=== PATIENT | male | born 1935 | race Caucasian/White ===

== ENCOUNTER 2017-05-09 08:10 | Inpatient (IN) ==
[2017-05-09] MEDS ORDERED: IOPAMIDOL 100 ML BOTTLE IJ ONE (08:11)
--- NOTE | 2017-05-09 08:34 | Cat Scan Report ---
CLINICAL INFORMATION: Code stroke COMPARISON: None. TECHNIQUE: Axial noncontrast-enhanced images through the brain. FINDINGS: No acute intracranial hemorrhage. No intra-axial hematoma. There is a nonacute lacunar infarction in the right caudate nucleus. No other focal intra-axial attenuation abnormalities. No localized mass effect. There is mild cerebral atrophy, age-appropriate. There is mild periventricular white matter abnormality. Brainstem and cerebellum are negative. No extra-axial, intracranial abnormality. No subdural hematoma. No subarachnoid hemorrhage. Basilar cisterns are normal. No hyperdense middle cerebral artery sign. No calvarial fracture. No lytic lesion. Temporal bones are negative. There is inflammatory disease within the paranasal sinuses. There is mucosal thickening within ethmoid sinuses bilaterally, frontal sinuses bilaterally, and sphenoid air cells. IMPRESSION: 1. No acute intracranial abnormality. 2. Sinusitis. The exam was performed using radiation dose optimization techniques including, but not limited to, automated exposure control, adjustment of the mA and/or kV according to patient size and use of iterative reconstruction technique. Interpreted and Authenticated by: Karri Thompson 05/09/17
[2017-05-09 08:55] LABS: Basophils # (Auto) 0.1 K/mcL (0.0-0.3); Basophils % (Auto) 1.3 % (0.0-2.0); Eosinophils # (Auto) 0.4 K/mcL (0.0-0.7); Eosinophils % (Auto) 6.2 % (0.0-7.0); Granulocytes % (Auto) 63.9 % (38.0-78.0); Lymphocytes # (Auto) 1.1 K/mcL (1.5-4.8); Mean Cell Volume 102.2 fL (80.0-100.0); Mean Corpuscular HGB Conc 34.4 g/dL (31.0-36.0); Mean Corpuscular Hemoglobin 35.1 pg (26.0-34.0); Monocytes # (Auto) 0.9 K/mcL (0.1-0.9); Monocytes % (Auto) 12.6 % (1.0-12.0); Platelet Count 171 K/mcL (140-440); RBC 4.06 M/mcL (4.50-5.90); Red Cell Distribution Width 13.1 % (11.5-14.5)
[2017-05-09 09:21] LABS: ALT/SGPT 14 U/l (0-40); Albumin 4.3 gm/dL (3.2-5.2); Albumin/Globulin Ratio 1.1 (1.0-2.3); Alkaline Phosphatase 77 U/L (39-117); Blood Urea Nitrogen 16 mg/dl (8-23)
--- NOTE | 2017-05-09 09:25 | Emergency Department Note ---
Neuro HPI - General Chief Complaint: Neuro Symptoms/Deficit Stated Complaint: Neuro Time Seen by Provider: 05/09/17 09:23 Source: patient, family Mode of arrival: ambulatory Limitations: no limitations - History of Present Illness HPI Narrative: This 81-year-old gentleman comes to the emergency room by private car after he was noted this morning to have some slurred speech, facial droop and weakness of his left upper extremity and left lower extremity. His remembers him going to bed around 10 PM last evening and he was normal at that time. This morning he apparently got up and went to the bathroom by himself but slumped into a chair that thumped against the wall and woke her up and this was around 5 AM. She helped him get to bed and bathroom again and back to bed. At breakfast around 7 or 730 he was choking significantly and could not seem to eat. He says he was having trouble swallowing. Because of these signs and symptoms was brought to the emergency room. He reports last evening that he felt like he swallowed something wrong but it was not food or saliva. On Anticoagulants: Yes - Related Data Home Medications: Home Medications Medication Instructions Recorded Confirmed Aspirin [[place] Aspirin] 81 mg PO DAILY 01/31/17 01/31/17 Cholecalciferol (Vitamin D3) 2,000 unit PO DAILY 01/31/17 01/31/17 [Vitamin D] Cyanocobalamin/Folic Acid [Vitamin 1 each PO DAILY 01/31/17 01/31/17 O66-Lwrfy Acid Tablet] Ferrous Sulfate 65 mg PO DAILY 01/31/17 01/31/17 Hydrochlorothiazide [Oretic] 25 mg PO DAILY 01/31/17 01/31/17 Lisinopril [Zestril] 40 mg PO DAILY 01/31/17 01/31/17 Metoprolol Tartrate [Lopressor] 150 mg PO DAILY 01/31/17 01/31/17 Multivitamin [Men's Multi-Vitamin] 1 each PO DAILY 01/31/17 01/31/17 Omeprazole [PriLOSEC] 20 mg PO DAILY 01/31/17 01/31/17 Pravastatin [Pravachol] 20 mg PO HS 01/31/17 01/31/17 amLODIPine BESYLATE [Amlodipine 10 mg PO DAILY 01/31/17 01/31/17 Besylate] glipiZIDE [Glucotrol] 5 mg PO DAILY 01/31/17 01/31/17 Previous Rx's Medication Instructions Recorded Methocarbamol [Robaxin-750] 750 mg PO QIDP PRN #60 tab 01/31/17 Allergies/Adverse Reactions: Allergies Allergy/AdvReac Type Severity Reaction Status Date / Time No Known Drug Allergies Allergy Verified 05/09/17 08:11 Review of Systems Review of Systems: Constitutional: Denies: fever, chills, sweats ENT ED: Reports: throat pain (Mild recently with upper respiratory infection.), other (Has recently been sneezing quite a bit.). Denies: congestion Cardiovascular: Denies: chest pain, palpitations Respiratory: Reports: shortness of breath (With just these last few days; an antihistamine did seem to help which he took yesterday or the day before.). Denies: cough, wheezes Gastrointestinal: Reports: vomiting (Dry heaves today.), diarrhea. Denies: abdominal pain Genitourinary: Reports: incontinence. 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 Denies: atrial fibrillation, CVA, myocardial infarction, thyroid disease Surgical history ED: Reports: other (Right orchiectomy) Medical history: Reports: DM, hyperlipidemia, hypertension Surgical history ED: Reports: other (left kidney surgery, had renal ca) - Social History smoking status: Former smoker Physical Exam Limitations: no limitations General appearance: alert, in distress Head: atraumatic, normocephalic, other (Exception is lack of complete movement on the left corner of his mouth.) Eye: Present: EOMI, other (He is able to close his eyes tightly against resistance equally.) ENT: normal oropharynx, other (Tongue is midline. Left corner of the mouth does not drop equally compared to the right when he tries to smile.) Neck: Present: trachea midline. Absent: lymphadenopathy, thyromegaly Respiratory: Present: normal lung sounds bilaterally. Absent: respiratory distress, wheezes, stridor, accessory muscle use, prolonged expiratory phase Cardiovascular: Present: irregular rhythm. Absent: systolic murmur, diastolic murmur Abdominal: Present: soft. Absent: distention, tenderness, guarding, rebound, rigidity, organomegaly, mass Extremities: Absent: pedal edema, pretibial edema, calf tenderness Back: Present: spinous process tenderness. Absent: CVA tenderness (R), CVA tenderness (L) Neurological: Present: alert, oriented X3 Cranial nerves: EOM function (II, III, IV, ): Normal, facial sensation (V): Normal, facial palsy (VII): Abnormal Left, tongue deviation (XII): Normal Cerebellar function: finger to nose: Normal, heel to alonso: Normal Motor strength - LUE: 4/5 Motor strength - RUE: 4/5 Motor strength - LLE: 4/5 Motor strength - RLE: 4/5 Upper motor neuron exam: stephan neglect: Absent bilaterally, pronator drift: Absent bilaterally Sensory exam upper extremity: Normal: light touch Sensory exam lower extremity: Normal: light touch Psychiatric: Present: normal affect, normal mood, other (Mildly flat face ease) Limitations: no limitations Course Vital Signs Pulse Rate 99 H 05/09/17 08:11 Respiratory Rate 18 05/09/17 08:11 Blood Pressure 144/94 05/09/17 08:11 Pulse Oximetry (%) 97 05/09/17 08:11 Pulse Rate 98 H 05/09/17 09:16 Respiratory Rate 18 05/09/17 09:16 Blood Pressure 122/90 05/09/17 09:16 Pulse Oximetry (%) 96 05/09/17 09:16 Neuro Symptoms/Deficit - MDM Narrative Medical decision making narrative: Medical decision making narrative: Probable CVA but CT scan was negative. Some of his symptoms were reversing when he came back from CT scan. With his history of diabetes and the severity of his symptoms, he is a candidate for inpatient observation which I will discuss with Dr. Guido who will be coming on. ECG demonstrates atrial fibrillation which is likely to be new. He reports being on a blood thinner but it is not in his list. It is doubtful that he actually is on a specific blood thinner. - Lab Data Result diagrams: 05/09/17 08:14 05/09/17 08:14 Lab Results 05/09/17 05/09/17 05/09/17 Range/Units 08:14 08:14 08:14 WBC 7.1 (4.5-11.0) K/mcL RBC 4.06 L (4.50-5.90) M/mcL Hgb 14.3 (13.5-16.5) g/dL Hct 41.5 (41.0-55.0) % POC Hct 44.0 (41.0-55.0) % MCV 102.2 H (80.0-100.0) fL MCH 35.1 H (26.0-34.0) pg MCHC 34.4 (31.0-36.0) g/dL RDW 13.1 (11.5-14.5) % Plt Count 171 (140-440) K/mcL MPV 9.0 (7.4-10.4) fL Gran % 63.9 (38.0-78.0) % Lymph % (Auto) 16.0 (15.5-49.0) % [place] % (Auto) 12.6 H (1.0-12.0) % Eos % (Auto) 6.2 (0.0-7.0) % Baso % (Auto) 1.3 (0.0-2.0) % Gran # 4.6 (1.8-8.0) K/mcL Lymph # (Auto) 1.1 L (1.5-4.8) K/mcL [place] # (Auto) 0.9 (0.1-0.9) K/mcL Eos # (Auto) 0.4 (0.0-0.7) K/mcL Baso # (Auto) 0.1 (0.0-0.3) K/mcL POC PT 14.1 (11.9-14.5) sec POC INR 1.2 (0.9-1.2) POC Sodium 139 (133-145) mmol/L Sodium 135 (133-145) mmol/L POC Potassium 3.5 (3.3-5.1) mmol/L Potassium 3.5 (3.3-5.1) mmol/L POC Chloride 98 (96-108) mmol/L Chloride 94 L (96-108) mmol/L Carbon Dioxide 23 (22-30) mmol/L POC Total CO2 28 (22-30) mmol/L Anion Gap 18.0 H (8-16) POC BUN 18 (8-23) mg/dl BUN 16 (8-23) mg/dl Creatinine 1.1 (0.7-1.2) mg/dl POC Creatinine 1.1 (0.7-1.2) mg/dl GFR Calculation 63 Glucose 245 H (70-105) mg/dL POC Glucose 247 H (70-105) mg/dL Calcium 10.2 (8.6-10.4) mg/dl POC WB Ioniz Calcium 1.24 (1.16-1.32) mmol/L Total Bilirubin 0.4 (0.0-1.0) mg/dL AST 20 (0-37) U/l ALT 14 (0-40) U/l Alkaline Phosphatase 77 (39-117) U/L Troponin T (0-0.03) ng/ml Total Protein 8.3 (5.9-8.4) gm/dL Albumin 4.3 (3.2-5.2) gm/dL Globulin 4.0 H (2.2-3.7) gm/dL Albumin/Globulin Ratio 1.1 (1.0-2.3) 05/09/17 Range/Units 08:14 WBC (4.5-11.0) K/mcL RBC (4.50-5.90) M/mcL Hgb (13.5-16.5) g/dL Hct (41.0-55.0) % POC Hct (41.0-55.0) % MCV (80.0-100.0) fL MCH (26.0-34.0) pg MCHC (31.0-36.0) g/dL RDW (11.5-14.5) % Plt Count (140-440) K/mcL MPV (7.4-10.4) fL Gran % (38.0-78.0) % Lymph % (Auto) (15.5-49.0) % [place] % (Auto) (1.0-12.0) % Eos % (Auto) (0.0-7.0) % Baso % (Auto) (0.0-2.0) % Gran # (1.8-8.0) K/mcL Lymph # (Auto) (1.5-4.8) K/mcL [place] # (Auto) (0.1-0.9) K/mcL Eos # (Auto) (0.0-0.7) K/mcL Baso # (Auto) (0.0-0.3) K/mcL POC PT (11.9-14.5) sec POC INR (0.9-1.2) POC Sodium (133-145) mmol/L Sodium (133-145) mmol/L POC Potassium (3.3-5.1) mmol/L Potassium (3.3-5.1) mmol/L POC Chloride (96-108) mmol/L Chloride (96-108) mmol/L Carbon Dioxide (22-30) mmol/L POC Total CO2 (22-30) mmol/L Anion Gap (8-16) POC BUN (8-23) mg/dl BUN (8-23) mg/dl Creatinine (0.7-1.2) mg/dl POC Creatinine (0.7-1.2) mg/dl GFR Calculation Glucose (70-105) mg/dL POC Glucose (70-105) mg/dL Calcium (8.6-10.4) mg/dl POC WB Ioniz Calcium (1.16-1.32) mmol/L Total Bilirubin (0.0-1.0) mg/dL AST (0-37) U/l ALT (0-40) U/l Alkaline Phosphatase (39-117) U/L Troponin T < 0.01 (0-0.03) ng/ml Total Protein (5.9-8.4) gm/dL Albumin (3.2-5.2) gm/dL Globulin (2.2-3.7) gm/dL Albumin/Globulin Ratio (1.0-2.3) Disposition Pt seen by BLOW DOWN HELPER/PA only: No Clinical Impression: Left hemiparesis, Facial droop due to acute stroke CVA (cerebral vascular accident) Qualifiers: CVA mechanism: unspecified Qualified Code(s): I63.9 - Cerebral infarction, unspecified A-fib Qualifiers: Atrial fibrillation type: unspecified Qualified Code(s): I48.91 - Unspecified atrial fibrillation Disposition: Still a Patient Referrals: Doug Lund MD [Primary Care Provider] -
--- NOTE | 2017-05-09 10:04 | Cat Scan Report ---
CLINICAL INFORMATION: Stroke symptoms TECHNIQUE: Routine CTA of the neck. 80 mL contrast material injected. Scanning was performed during arterial phase. Sagittally and coronally reformatted images. COMPARISON: None. FINDINGS: There is calcification of the aortic arch. No dissection. No aneurysmal enlargement. Origin of the left subclavian artery, left vertebral artery, left common carotid artery, innominate artery, right common carotid artery, right subclavian artery, right vertebral artery are normal. No stenosis. Common carotid arteries are negative bilaterally. No focal stenosis. Internal carotid arteries are negative. No stenosis. No ulceration. No significant plaque. The right internal carotid artery is larger than the left. There is a hypoplastic A1 segment of the left anterior cerebral artery. This is a normal variant. Vertebral arteries are negative. No occlusion. No stenosis. Left vertebral artery is larger than the right. Vertebral basilar junction is normal. No negative. No solid or cystic mass. No pathologic adenopathy. Airway is negative. No prevertebral soft tissue swelling. Multilevel degenerative disc disease in the cervical spine. No fracture. Lung apices are negative. IMPRESSION: 1. Mild atherosclerotic calcification of the thoracic aorta. 2. Common carotid arteries and internal carotid arteries are negative. No significant plaque. No stenosis. No focal ulcerations or acute abnormality. Interpreted and Authenticated by: Karri Thompson 05/09/17
--- NOTE | 2017-05-09 10:07 | Cat Scan Report ---
CLINICAL INFORMATION: Code stroke TECHNIQUE: 80 mL intravenous contrast material injected. Axial images through the brain. Scanning performed during arterial phase. Sagittally and coronally reformatted images. COMPARISON: Brain CT scan dated 05/09/2017 FINDINGS: Petrous, cavernous, supraclinoid segments of the internal carotid arteries are negative bilaterally. No focal stenosis. No cavernous carotid aneurysm. The right internal carotid artery is larger than the left. This is secondary to a hypoplastic or aplastic A1 segment of the left anterior cerebral artery. This is a normal variant. There is a prominent right posterior communicating artery. No intracranial stenoses. No detectable branch occlusion. Intracranial vertebral arteries are negative. Basilar artery is negative. No intracranial aneurysm. No arteriovenous malformation. IMPRESSION: 1. Negative CTA. 2. No intracranial stenosis or branch occlusion. 3. No intracranial aneurysm or arteriovenous malformation. Interpreted and Authenticated by: Karri Thompson 05/09/17
[2017-05-09 10:10] LABS: Appearance,Urine CLEAR; Bacteria,Urine 0 /hpf (0); Bilirubin,Urine NEG (NEG); Color,Urine YELLOW; Glucose,Urine (UA) >=500 mg/dL (NEG); Leukocyte Esterase,Urine NEG /uL (NEG); Mucus,Urine FEW /hpf (0); Nitrate,Urine NEG (NEG); Protein,Urine NEG (NEG); Specific Gravity,Urine 1.009 (1.000-1.035); Urine Blood NEG mg/dL (<0.03); Urine RBC 0 /hpf (0-1); Urine Squamous Epithelial Cell 0 /hpf (0-4); Urine WBC < 1 /hpf (0-4); Urobilinogen,Urine NEG (NEG)
--- NOTE | 2017-05-09 11:09 | Emergency Department Note ---
Neuro HPI - General Chief Complaint: Neuro Symptoms/Deficit Stated Complaint: Neuro Time Seen by Provider: 05/09/17 09:23 Source: patient, family Mode of arrival: ambulatory Limitations: no limitations - History of Present Illness On Anticoagulants: Yes - Related Data Home Medications: Home Medications Medication Instructions Recorded Confirmed Aspirin [[place] Aspirin] 81 mg PO DAILY 01/31/17 01/31/17 Cholecalciferol (Vitamin D3) 2,000 unit PO DAILY 01/31/17 01/31/17 [Vitamin D] Cyanocobalamin/Folic Acid [Vitamin 1 each PO DAILY 01/31/17 01/31/17 M50-Qcilc Acid Tablet] Ferrous Sulfate 65 mg PO DAILY 01/31/17 01/31/17 Hydrochlorothiazide [Oretic] 25 mg PO DAILY 01/31/17 01/31/17 Lisinopril [Zestril] 40 mg PO DAILY 01/31/17 01/31/17 Metoprolol Tartrate [Lopressor] 150 mg PO DAILY 01/31/17 01/31/17 Multivitamin [Men's Multi-Vitamin] 1 each PO DAILY 01/31/17 01/31/17 Omeprazole [PriLOSEC] 20 mg PO DAILY 01/31/17 01/31/17 Pravastatin [Pravachol] 20 mg PO HS 01/31/17 01/31/17 amLODIPine BESYLATE [Amlodipine 10 mg PO DAILY 01/31/17 01/31/17 Besylate] glipiZIDE [Glucotrol] 5 mg PO DAILY 01/31/17 01/31/17 Previous Rx's Medication Instructions Recorded Methocarbamol [Robaxin-750] 750 mg PO QIDP PRN #60 tab 01/31/17 Allergies/Adverse Reactions: Allergies Allergy/AdvReac Type Severity Reaction Status Date / Time No Known Drug Allergies Allergy Verified 05/09/17 08:11 Past Medical History - Past Medical History Medical history: Reports: DM, hyperlipidemia, hypertension Surgical history ED: Reports: other (left kidney surgery, had renal ca) - Social History smoking status: Former smoker Physical Exam Limitations: no limitations Course Vital Signs Pulse Rate 99 H 05/09/17 08:11 Respiratory Rate 18 05/09/17 08:11 Blood Pressure 144/94 05/09/17 08:11 Pulse Oximetry (%) 97 05/09/17 08:11 Pulse Rate 90 05/09/17 10:31 Respiratory Rate 15 05/09/17 10:31 Blood Pressure 126/76 05/09/17 10:31 Pulse Oximetry (%) 95 05/09/17 10:31 Neuro Symptoms/Deficit - MDM Narrative Medical decision making narrative: pt transferred under care of Dr Boyce [place] 0900 ct and cta neg, carotids normal. Dr Trujillo at stroke center states admitt locally for continued work up Dr Cash contacted. - Lab Data Result diagrams: 05/09/17 08:14 05/09/17 08:14 Lab Results 05/09/17 05/09/17 05/09/17 Range/Units 08:14 08:14 08:14 WBC 7.1 (4.5-11.0) K/mcL RBC 4.06 L (4.50-5.90) M/mcL Hgb 14.3 (13.5-16.5) g/dL Hct 41.5 (41.0-55.0) % POC Hct 44.0 (41.0-55.0) % MCV 102.2 H (80.0-100.0) fL MCH 35.1 H (26.0-34.0) pg MCHC 34.4 (31.0-36.0) g/dL RDW 13.1 (11.5-14.5) % Plt Count 171 (140-440) K/mcL MPV 9.0 (7.4-10.4) fL Gran % 63.9 (38.0-78.0) % Lymph % (Auto) 16.0 (15.5-49.0) % [place] % (Auto) 12.6 H (1.0-12.0) % Eos % (Auto) 6.2 (0.0-7.0) % Baso % (Auto) 1.3 (0.0-2.0) % Gran # 4.6 (1.8-8.0) K/mcL Lymph # (Auto) 1.1 L (1.5-4.8) K/mcL [place] # (Auto) 0.9 (0.1-0.9) K/mcL Eos # (Auto) 0.4 (0.0-0.7) K/mcL Baso # (Auto) 0.1 (0.0-0.3) K/mcL POC PT 14.1 (11.9-14.5) sec POC INR 1.2 (0.9-1.2) APTT 31 (20-37) sec POC Sodium 139 (133-145) mmol/L Sodium 135 (133-145) mmol/L POC Potassium 3.5 (3.3-5.1) mmol/L Potassium 3.5 (3.3-5.1) mmol/L POC Chloride 98 (96-108) mmol/L Chloride 94 L (96-108) mmol/L Carbon Dioxide 23 (22-30) mmol/L POC Total CO2 28 (22-30) mmol/L Anion Gap 18.0 H (8-16) POC BUN 18 (8-23) mg/dl BUN 16 (8-23) mg/dl Creatinine 1.1 (0.7-1.2) mg/dl POC Creatinine 1.1 (0.7-1.2) mg/dl GFR Calculation 63 Glucose 245 H (70-105) mg/dL POC Glucose 247 H (70-105) mg/dL Calcium 10.2 (8.6-10.4) mg/dl POC WB Ioniz Calcium 1.24 (1.16-1.32) mmol/L Total Bilirubin 0.4 (0.0-1.0) mg/dL AST 20 (0-37) U/l ALT 14 (0-40) U/l Alkaline Phosphatase 77 (39-117) U/L Troponin T (0-0.03) ng/ml Total Protein 8.3 (5.9-8.4) gm/dL Albumin 4.3 (3.2-5.2) gm/dL Globulin 4.0 H (2.2-3.7) gm/dL Albumin/Globulin Ratio 1.1 (1.0-2.3) Urine Color Urine Appearance Urine pH (5.0-9.0) Ur Specific [place] (1.000-1.035) Urine Protein (NEG) mg/dL Urine Glucose (UA) (NEG) mg/dL Urine Ketones (NEG) mg/dL Urine Occult Blood (<0.03) mg/dL Urine Nitrate (NEG) Urine Bilirubin (NEG) mg/dL Urine Urobilinogen (NEG) mg/dL Ur Leukocyte Esterase (NEG) /uL Urine RBC (0-1) /hpf Urine WBC (0-4) /hpf Ur Squamous Epith Cells (0-4) /hpf Urine Bacteria (0) /hpf Urine Mucus (0) /hpf Ur Culture Indicated? 05/09/17 05/09/17 Range/Units 08:14 09:40 WBC (4.5-11.0) K/mcL RBC (4.50-5.90) M/mcL Hgb (13.5-16.5) g/dL Hct (41.0-55.0) % POC Hct (41.0-55.0) % MCV (80.0-100.0) fL MCH (26.0-34.0) pg MCHC (31.0-36.0) g/dL RDW (11.5-14.5) % Plt Count (140-440) K/mcL MPV (7.4-10.4) fL Gran % (38.0-78.0) % Lymph % (Auto) (15.5-49.0) % [place] % (Auto) (1.0-12.0) % Eos % (Auto) (0.0-7.0) % Baso % (Auto) (0.0-2.0) % Gran # (1.8-8.0) K/mcL Lymph # (Auto) (1.5-4.8) K/mcL [place] # (Auto) (0.1-0.9) K/mcL Eos # (Auto) (0.0-0.7) K/mcL Baso # (Auto) (0.0-0.3) K/mcL POC PT (11.9-14.5) sec POC INR (0.9-1.2) APTT (20-37) sec POC Sodium (133-145) mmol/L Sodium (133-145) mmol/L POC Potassium (3.3-5.1) mmol/L Potassium (3.3-5.1) mmol/L POC Chloride (96-108) mmol/L Chloride (96-108) mmol/L Carbon Dioxide (22-30) mmol/L POC Total CO2 (22-30) mmol/L Anion Gap (8-16) POC BUN (8-23) mg/dl BUN (8-23) mg/dl Creatinine (0.7-1.2) mg/dl POC Creatinine (0.7-1.2) mg/dl GFR Calculation Glucose (70-105) mg/dL POC Glucose (70-105) mg/dL Calcium (8.6-10.4) mg/dl POC WB Ioniz Calcium (1.16-1.32) mmol/L Total Bilirubin (0.0-1.0) mg/dL AST (0-37) U/l ALT (0-40) U/l Alkaline Phosphatase (39-117) U/L Troponin T < 0.01 (0-0.03) ng/ml Total Protein (5.9-8.4) gm/dL Albumin (3.2-5.2) gm/dL Globulin (2.2-3.7) gm/dL Albumin/Globulin Ratio (1.0-2.3) Urine Color Yellow Urine Appearance Clear Urine pH 7.0 (5.0-9.0) Ur Specific [place] 1.009 (1.000-1.035) Urine Protein Neg (NEG) mg/dL Urine Glucose (UA) >=500 A (NEG) mg/dL Urine Ketones Neg (NEG) mg/dL Urine Occult Blood Neg (<0.03) mg/dL Urine Nitrate Neg (NEG) Urine Bilirubin Neg (NEG) mg/dL Urine Urobilinogen Neg (NEG) mg/dL Ur Leukocyte Esterase Neg (NEG) /uL Urine RBC 0 (0-1) /hpf Urine WBC < 1 (0-4) /hpf Ur Squamous Epith Cells 0 (0-4) /hpf Urine Bacteria 0 (0) /hpf Urine Mucus Few (0) /hpf Ur Culture Indicated? No Disposition Pt seen by CLEAT MAKER/PA only: No Clinical Impression: Left hemiparesis, Facial droop due to acute stroke CVA (cerebral vascular accident) Qualifiers: CVA mechanism: unspecified Qualified Code(s): I63.9 - Cerebral infarction, unspecified A-fib Qualifiers: Atrial fibrillation type: unspecified Qualified Code(s): I48.91 - Unspecified atrial fibrillation Disposition: Xfer As Inpt ([facility]) Condition: Fair Referrals: Doug Lund MD [Primary Care Provider] -
[2017-05-09] MEDS ORDERED: ACETAMINOPHEN 325 MG TABLET PO PRN (15:02)
[2017-05-09] MEDS ORDERED: DEXTROSE 50% 50 ML VIAL IV PRN (15:02)
[2017-05-09] MEDS ORDERED: traZODone HCL 50 MG TABLET PO PRN (15:02)
[2017-05-09] MEDS ORDERED: MAGNESIUM HYDROXIDE 30 ML ORAL.SUSP PO PRN (15:02)
[2017-05-09] MEDS ORDERED: POTASSIUM CHLORIDE 20 MEQ PACKET PO PRN (15:02)
[2017-05-09] MEDS ORDERED: DEXTROSE 31 GM ORAL.SUSP PO PRN (15:02)
[2017-05-09] MEDS ORDERED: ONDANSETRON 4 MG/2 ML VIAL IV PRN (15:02)
[2017-05-09] MEDS ORDERED: POLYETHYLENE GLYCOL 3350 17 GM PACKET PO PRN (15:02)
[2017-05-09] MEDS ORDERED: ATORVASTATIN 20 MG TABLET PO ONE (15:15)
[2017-05-09] MEDS: LACTATED RINGERS 1,000 ML IV SCH (15:30)
[2017-05-09] MEDS ORDERED: METHOCARBAMOL 750 MG TABLET PO PRN (15:40)
--- NOTE | 2017-05-09 16:24 | History and Physical Report ---
DATE OF ADMISSION: 05/09/2017 PRIMARY CARE PHYSICIAN: Isaura Mehta NP at the [place]. DATE OF ADMISSION: 05/09/2017 REASON FOR ADMISSION: Left-sided weakness. HISTORY OF CHIEF COMPLAINT: The patient is an 81-year-old who lives with his in the [facility] and has been at his baseline state of health until last night. The patient woke up around 1:00 for a peanut butter sandwich and was having difficulty swallowing. However, he did not pay much attention. This morning he woke up with significant left-sided weakness, inability to talk, swallow, and use his left hand. He was subsequently brought in to [facility] ER. Stroke Neurology was consulted, Dr. Juarez at [place]. Because the patient was out of the window for tPA, he was advised to be admitted for further neuro workup. A CT angiogram and CT head in ED was unremarkable. The patient has been on aspirin and statin and carries a history of atrial fibrillation. At the time of evaluation, the patient is alert and oriented. He is having difficulty coordinating speech but was able to answer appropriately to most questions. He denied thunderclap headache. He denied double vision, hearing deficit, loss of consciousness, or bladder or bowel incontinence. He further denies seizure-like episode, new medication changes. He endorses to difficulty talking, swallowing and ambulating. His strength has somewhat improved to the point that he is able to lift his left hand and left leg with maximal effort. Also patient sustained a fall while attempting to ambulate to the bathroom and landed on his chair without sustaining major injuries. REVIEW OF SYSTEMS: A ten-point review of system was performed and is negative except the ones discussed above. PAST MEDICAL HISTORY: 1. History of coronary artery disease. 2. Hypertension. 3. Gastroesophageal reflux disease. 4. Hyperlipidemia 5. Diabetes mellitus type 2. CURRENT MEDICATIONS: 1. Amlodipine 10 mg daily. 2. Glipizide 5 mg. 3. Pravastatin 20 mg. 4. Omeprazole 20 mg. 5. Metoprolol 150 mg. 6. Lisinopril 40 mg. 7. Hydrochlorothiazide 25 mg. 8. Aspirin 81 mg. ALLERGIES: None significant. SOCIAL HISTORY: Lives with his . No history of smoking or alcoholism. FAMILY HISTORY: Coronary artery disease in multiple family members. Brother of stroke at age 45. SURGICAL HISTORY: Left nephrectomy for renal carcinoma, right orchiectomy for testicular cancer. PHYSICAL EXAMINATION: GENERAL: The patient is alert, oriented and nondistressed. BMI 27. Height 6 feet. VITAL SIGNS: Blood pressure 117/90, respiration rate 25, temperature 99.1, pulse variable between 80 and 110, atrial fibrillation, sats 98% on room air. HEENT: Pupils symmetric. Oral cavity is dry. No ear or nose discharge. Head is normocephalic and atraumatic. NECK: No lymphadenopathy. CHEST: S1, S2, irregular rhythm. ESM grade 1. Diminished breath sounds at bases. ABDOMEN: Soft and nontender. LOWER EXTREMITIES: No cyanosis or clubbing. No joint swelling. Stasis changes but normal range of motion of the joints. SKIN: No suspicious lesions. PSYCHIATRIC: Alert and cooperative, mild anxiety. NEURO: Higher function is normal memory, orientation, judgment, registration, recall. Speech is dysarthric. Cerebellar signs unremarkable. Motor grade III strength, left upper and lower extremity. Cranial nerves: Facial nerve palsy with left-sided facial droop. Eye movements are normal. Shoulder shrug preserved. Chin movement bilaterally unremarkable. Swallowing and phonation altered. Pharyngeal arch asymmetric. LABS AND IMAGING: White count 7.1, hemoglobin 14.4. INR 1.2. Sodium 139, potassium 3.5, creatinine 1.1, BUN 16. Troponin is negative. UA unremarkable. CT angiogram: Mild atherosclerotic calcification of the thoracic aorta. Common carotid arteries negative, no plaque. CTA head: Negative CTA. No intracranial stenosis. Head CT: No acute abnormality, sinusitis noted. MRI brain and echocardiogram pending. EKG: Atrial fibrillation with RVR. ASSESSMENT AND PLAN: An 81-year-old with acute right hemispheric CVA with left-sided weakness. 1. Right hemispheric CVA with left hemiparesis. The patient was beyond the window for tPA. Initial NIH score 7. The patient will be continued on neuro checks with telemonitoring, full dose aspirin, statin while we continue further neurology evaluation, including MRI of brain and echocardiogram, likely embolic source. However, we will await final MRI results. At this time, we will continue aggressive stroke management. PT, OT and aggressive blood sugar management with sliding scale insulin and sitagliptin. 2. Other prior medical issues will be managed on home medications, including: a. Hypertension. Continue amlodipine/JULIO inhibitor. b. History of CAD. Continue aspirin. c. Rhinitis. Continue fluticasone. d. Hypertension. Continue metoprolol, lisinopril, hydrochlorothiazide. e. GERD. Continue PPI. f. Hyperlipidemia. Continue statin. PLAN FOR TODAY: 1. Admit as inpatient. 2. Aggressive post-stroke physical therapy. 3. Stroke workup. 4. Neuro checks. 5. ICU admit. Overall, a high-complexity admission in this 81-year-old with acute right hemispheric CVA, likely cardioembolic mandating a minimum 48-hour hospitalization along with aggressive physical therapy and stroke management and possible transfer to SNF for continued post-stroke rehab. [email or web address] Job ID: [id number] Doc ID: [id number] Wilmar Mehta NP
[2017-05-09] MEDS: 0.9 % SODIUM CHLORIDE 10 ML SYRINGE IV SCH ×2 (17:02→23:15)
[2017-05-09] MEDS: INSULIN LISPRO 1 UNIT/0.01 ML UNIT SQ SCH ×2 (17:24→21:00)
[2017-05-09] MEDS: CYANOCOBALAMIN (VITAMIN B-12) 500 MCG TABLET PO SCH (19:59)
[2017-05-09] MEDS: SENNOSIDES/DOCUSATE SODIUM 1 TAB TABLET PO SCH (19:59)
[2017-05-09] MEDS: DOCUSATE SODIUM 100 MG CAPSULE PO SCH (19:59)
[2017-05-09] MEDS: HEPARIN 5,000 UNIT/ML VIAL SQ SCH (20:00)
[2017-05-09] MEDS: METOPROLOL TARTRATE 50 MG TABLET PO SCH (20:00)
[2017-05-09] MEDS ORDERED: PRAVASTATIN 20 MG TABLET PO SCH (21:00)
[2017-05-10] MEDS: LACTATED RINGERS 1,000 ML IV SCH ×2 (02:25→13:48)
[2017-05-10 05:20] LABS: Mean Cell Volume 103.6 fL (80.0-100.0); Mean Corpuscular Hemoglobin 35.3 pg (26.0-34.0); Platelet Count 156 K/mcL (140-440); RBC 4.02 M/mcL (4.50-5.90); Red Cell Distribution Width 13.2 % (11.5-14.5)
[2017-05-10 05:37] LABS: ALT/SGPT 13 U/l (0-40); Albumin 3.9 gm/dL (3.2-5.2); Alkaline Phosphatase 71 U/L (39-117); Bilirubin,Direct < 0.2 mg/dL (0.0-0.3); Blood Urea Nitrogen 13 mg/dl (8-23); Gamma Glutamyl Transpeptidase 16 U/L (8-61); Magnesium 1.4 mg/dL (1.6-2.5); Uric Acid 8.2 mg/dL (2.5-8.0)
--- NOTE | 2017-05-10 05:57 | Magnetic Resonance Report ---
CLINICAL INFORMATION: Left-sided weakness. Slurred speech. TECHNIQUE: Limited MRI of the brain. Sagittal T1 weighted images. Axial diffusion-weighted images, susceptibility images, T2 FLAIR sequence. Patient refused further imaging COMPARISON: CT scan dated 05/09/2017 FINDINGS: Several small foci of restricted diffusion in the right posterior frontal lobe. Appearance is consistent with bilateral acute infarction. There are corresponding ADC abnormalities. Findings are in a single gyrus as well as focal area of white matter abnormality in the centrum semiovale. No other restricted diffusion. No localized mass effect. No susceptibility. No hemorrhagic abnormality. FLAIR sequence demonstrates only mild white matter abnormality, considered to be within normal limits for age. Brainstem and cerebellum are negative. No extra-axial, intracranial abnormality. Normal flow void demonstrated. No subdural or detectable subarachnoid hemorrhage. There is inflammatory disease in the paranasal sinuses and nasal fossa. IMPRESSION: 1. Multiple small foci of restricted diffusion in the posterior right frontal lobe. Appearance is consistent with embolic acute infarctions 2. Inflammatory disease in the paranasal sinuses and nasal fossa 3. Limited evaluation performed as above Interpreted and Authenticated by: Karri Thompson 05/10/17
[2017-05-10] MEDS: MAGNESIUM SULFATE 2 GM/50 ML BAG IV PRN (06:06)
[2017-05-10 06:37] LABS: Band Neutrophils % 10 % (0-10); Basophils % (Manual) 1 % (0-2); Eosinophils % (Manual) 3 % (0-7); Lymphocytes % 23 % (15-49); Macrocytosis 1+ (NONE SEEN); Monocytes % (Manual) 13 % (1-12); Platelet Estimate NORMAL (NORMAL); RBC Morphology ABNORM (NORMAL); Segmented Neutrophils % 49 % (38-78); Toxic Granulation 1+ (NONE SEEN)
[2017-05-10] MEDS ORDERED: PANTOPRAZOLE 40 MG TABLET PO SCH (07:30)
[2017-05-10] MEDS: 0.9 % SODIUM CHLORIDE 10 ML SYRINGE IV SCH ×3 (08:04→20:35)
[2017-05-10] MEDS: FLUTICASONE PROPIONATE SPRAY.NAS NS SCH (08:04)
[2017-05-10] MEDS ORDERED: CYANOCOBALAMIN (VITAMIN B-12) 500 MCG TABLET PO SCH (09:00)
[2017-05-10] MEDS ORDERED: MULTIVIT,THER IRON,CA,FA & MIN 1 TABLET PO SCH (09:00)
[2017-05-10] MEDS ORDERED: ASPIRIN 81 MG PO SCH (09:00)
[2017-05-10] MEDS: DOCUSATE SODIUM 100 MG CAPSULE PO SCH ×2 (10:11→20:33)
[2017-05-10] MEDS: INSULIN LISPRO 1 UNIT/0.01 ML UNIT SQ SCH ×4 (10:11→20:31)
[2017-05-10] MEDS: CYANOCOBALAMIN (VITAMIN B-12) 500 MCG TABLET PO SCH ×2 (10:20→20:32)
[2017-05-10] MEDS: VITAMIN D3 1,000 UNIT TABLET PO SCH (10:20)
[2017-05-10] MEDS: HEPARIN 5,000 UNIT/ML VIAL SQ SCH ×2 (10:20→20:32)
[2017-05-10] MEDS: sitaGLIPtin 100 MG TABLET PO SCH (10:20)
[2017-05-10] MEDS: ASPIRIN 81 MG TAB.CHEW CHEWED SCH (10:21)
[2017-05-10] MEDS: OMEPRAZOLE 20 MG CAPSULE PO SCH (10:21)
[2017-05-10] MEDS: MULTIVIT,THER IRON,CA,FA & MIN 1 TABLET PO SCH (10:22)
[2017-05-10] MEDS: glipiZIDE 5 MG TABLET PO SCH (10:22)
[2017-05-10] MEDS: FERROUS SULFATE 325 MG TABLET PO SCH (10:22)
[2017-05-10] MEDS: METOPROLOL TARTRATE 50 MG TABLET PO SCH ×2 (10:22→20:32)
[2017-05-10] MEDS: HYDROCHLOROTHIAZIDE 25 MG TABLET PO SCH (10:23)
[2017-05-10] MEDS: LISINOPRIL 20 MG TABLET PO SCH (10:23)
[2017-05-10] MEDS: amLODIPine 10 MG TABLET PO SCH (10:23)
--- NOTE | 2017-05-10 11:34 | Internal Med Progress Note ---
Medical - PN: Subj Patient information: Note initiated : 05/10/17 at 11:31 am Service Date, if different from initiated Date: [] Patient: Luis Holland 81 y/o M admitted on 05/09/17 for Neuro/Right Hemispheric CVA with Left Hemiparesis. Chief Complaint: [] Interval history: 05/09- patient admitted with left-sided weakness/dysarthria. Beyond the window for TPA. Initial NIH score 7. Admitted to telemetry. CT angiogram neck along with head and CT brain unremarkable. Echo and MRI pending. Started on aspirin and statin. Continue stroke management per protocol along with aggressive physical therapy/SGOT eval 05/10-multifocal posterior right frontal lobe embolic infarcts on MRI. History of atrial fibrillation. Discussed anticoagulation to prevent future stroke. I do correlation can be safely started 2 weeks following acute stroke as outpatient. At this time patient is undergoing PT OT ST eval. Discharge planning will depend on physical therapy recommendations. No overnight fever chills nausea, worsening SYMPTOMS. Patient actually feels much better and able to ambulate - Constitutional Vitals: Vital Signs Temp Pulse Resp BP Pulse Ox 97.4 F 99 H 18 120/76 98 05/10/17 07:48 05/10/17 07:55 05/10/17 07:55 05/10/17 07:48 05/10/17 07:55 Period Temp Pulse Resp BP Sys/Alexander Pulse Ox Last 24 Hr 97.4 F-99.1 F 64-109 16-32 92-154/71-112 96-100 Intake and Output 05/09/17 05/10/17 05/10/17 21:59 05:59 13:59 Intake Total 1000 / 1000 50 / 50 Output Total 425 / 425 1000 / 1000 375 / 375 Balance -425 / -425 0 / 0 -325 / -325 Weight 198 lb 11.2 oz Intake & Output: Intake & Output 05/09/17 05/10/17 05/10/17 21:59 05:59 13:59 Intake Total 1000 / 1000 50 / 50 Output Total 425 / 425 1000 / 1000 375 / 375 Balance -425 / -425 0 / 0 -325 / -325 Weight 198 lb 11.2 oz Intake: IV 1000 / 1000 50 / 50 Lactated Ringers 1,000 ml @ 100 1000 / 1000 mls/hr IV .Q10H MARILYN Rx#: [id number] Output: Void Amount 425 / 425 1000 / 1000 375 / 375 Other: # Bowel Movements 1 General appearance: cooperative, no acute distress Exam: alert oriented nonlabored breathing Persistent left-sided weakness but improved since previous day dysphonia and dysarthria Medical - PN: Obj Da - Labs CBC & Chem 7: 05/10/17 04:08 05/10/17 04:08 Labs: Abnormal Lab Results 05/10/17 05/10/17 05/09/17 04:08 04:08 09:40 RBC 4.02 L MCV 103.6 H MCH 35.3 H [place] % (Auto) Lymph # (Auto) Monocytes % (Manual) 13 H WBC Morphology Abnorm A Toxic Granulation 1+ A RBC Morphology Abnorm A Macrocytosis 1+ A Chloride Anion Gap Glucose 154 H POC Glucose Uric Acid 8.2 H Phosphorus 2.4 L Magnesium 1.4 L Globulin 3.8 H Triglycerides 217 H Urine Glucose (UA) >=500 A 05/09/17 05/09/17 08:14 08:14 RBC 4.06 L MCV 102.2 H MCH 35.1 H [place] % (Auto) 12.6 H Lymph # (Auto) 1.1 L Monocytes % (Manual) WBC Morphology Toxic Granulation RBC Morphology Macrocytosis Chloride 94 L Anion Gap 18.0 H Glucose 245 H POC Glucose 247 H Uric Acid Phosphorus Magnesium Globulin 4.0 H Triglycerides Urine Glucose (UA) Meds: Medications Acetaminophen (Tylenol) 650 mg PO Q4-6HP PRN PRN Reason: PAIN/FEVER > 101 Amlodipine Besylate (Norvasc) 10 mg PO DAILY [facility] Last Admin: 05/10/17 10:23 Dose: Not Given Aspirin (Aspirin) 324 mg CHEWED DAILY [facility] Last Admin: 05/10/17 10:21 Dose: 324 mg Atorvastatin Calcium (Lipitor) 40 mg PO [facility] Cyanocobalamin (Vitamin B-12) 1,000 mcg PO BID [facility] Stop: 05/14/17 09:01 Last Admin: 05/10/17 10:20 Dose: 1,000 mcg Dextrose (Dextrose 50%) 0 ml IV UD PRN PRN Reason: Hypoglycemia Diagnostic Test (Pha) (Accu-Chek) 1 each FS ACHS [facility] Last Admin: 05/10/17 10:10 Dose: 1 each Docusate Sodium (Colace) 100 mg PO BID [facility] Last Admin: 05/10/17 10:11 Dose: Not Given Ferrous Sulfate (Ferrous Sulfate) 325 mg PO QAMCC [facility] Last Admin: 05/10/17 10:22 Dose: 325 mg Fluticasone Propionate (Flonase) 2 spray NS DAILY [facility] Last Admin: 05/10/17 08:04 Dose: Not Given [facility] Last Admin: 05/10/17 10:22 Dose: 5 mg Glucose (Insta-Glucose) 15 gm PO PRN PRN PRN Reason: Hypoglycemia Heparin Sodium (Porcine) (Heparin) 5,000 unit SQ Q12 [facility] Last Admin: 05/10/17 10:20 Dose: 5,000 unit Hydrochlorothiazide (Oretic) 25 mg PO DAILY [facility] Last Admin: 05/10/17 10:23 Dose: Not Given Lactated Ringer's (Lactated Ringers) 1,000 mls @ 100 mls/hr IV .Q10H [facility] Stop: 05/10/17 21:01 Last Admin: 05/10/17 02:25 Dose: 100 mls/hr Magnesium Sulfate (Magnesium Sulfate) 2 gm in 50 mls @ 50 mls/hr IV UD PRN PRN Reason: MG = or < 1.7 Last Infusion: 05/10/17 08:05 Dose: Infused Insulin Human Lispro (Humalog) 0 unit SQ ACHS [facility] PRN Reason: Protocol Last Admin: 05/10/17 10:11 Dose: Not Given Iron Carb/Multivit/[place]/Folic Acid (Multivitamin W/Minerals) 1 tab PO DAILY [facility] Last Admin: 05/10/17 10:22 Dose: 1 tab Lisinopril (Zestril) 40 mg PO DAILY [facility] Last Admin: 05/10/17 10:23 Dose: Not Given Magnesium Hydroxide (Milk Of Magnesia) 30 ml PO HSP PRN PRN Reason: Constipation Methocarbamol (Robaxin) 750 mg PO QIDP PRN PRN Reason: Muscle Spasm Last Admin: 05/09/17 20:00 Dose: 750 mg Metoprolol Tartrate (Lopressor) 75 mg PO BID [facility] Last Admin: 05/10/17 10:22 Dose: 75 mg [facility]) [facility] Last Admin: 05/10/17 10:21 Dose: 20 mg Ondansetron HCl (Zofran) 4 mg IV Q4-6HP PRN PRN Reason: Nausea And Vomiting Polyethylene Glycol (Miralax) 17 gm PO DAILYP PRN PRN Reason: Constipation Potassium Chloride (Klor-Con) 40 meq PO DAILYP PRN PRN Reason: K+ < 3.5 Senna/Docusate Sodium (Senna Plus Tablet) 1 tab PO HS [facility] Last Admin: 05/09/17 19:59 Dose: 1 tab Sitagliptin Phosphate (Januvia) 100 mg PO DAILY [facility] Last Admin: 05/10/17 10:20 Dose: 100 mg Sodium Chloride (Saline Flush) 10 ml IV Q8 [facility] Last Admin: 05/10/17 08:04 Dose: Not Given Trazodone HCl (Desyrel) 50 mg PO HSP PRN PRN Reason: Insomnia Last Admin: 05/09/17 19:59 Dose: 50 mg Vitamin D (Vitamin D3) 2,000 unit PO DAILY [facility] Last Admin: 05/10/17 10:20 Dose: 2,000 unit Medical - PN: A/P - Time Spent With Patient Total time spent is greater than 50% in coordination of care (as documented) at patient's floor/unit and/or counseling patient: 25 - 35 minutes (1) Cerebrovascular accident (CVA) due to embolism of right anterior cerebral artery Status: Acute Assessment and plan: * multifocal right frontal lobe embolic CVA in the setting of A. fib. Ongoing stroke management per protocol. Recommend initiation of anticoagulation in 2 weeks for future stroke prophylaxis. Continue aggressive PT OT ST.echocardiogram dated * HTN continue JULIO inhibitor/amlodipine, metoprolol, thiazide * History of coronary artery disease continue aspirin * Allergic rhinitis continue fluticasone * GERD continue PPI * Hyperlipidemia on statin Plan * Stroke management per protocol * Aggressive PT OT ST * Await echocardiogram * discharge planning as per PT recommendations Current Visit: Yes Medical - PN: Qual - Stroke Onset of Symptoms Date: 05/09/17 Onset of Symptoms Time: 01:00 Symptom Onset Unknown: Yes - VTE Deep Vein Thrombosis/Pulmonary Embolism Present on Admission: No
[2017-05-10] MEDS: ATORVASTATIN 20 MG TABLET PO SCH (20:33)
[2017-05-10] MEDS: SENNOSIDES/DOCUSATE SODIUM 1 TAB TABLET PO SCH (20:33)
[2017-05-11] MEDS: 0.9 % SODIUM CHLORIDE 10 ML SYRINGE IV SCH ×3 (05:45→21:26)
[2017-05-11 06:19] LABS: Mean Cell Volume 103.7 fL (80.0-100.0); Mean Corpuscular HGB Conc 34.8 g/dL (31.0-36.0); Mean Corpuscular Hemoglobin 36.1 pg (26.0-34.0); Platelet Count 137 K/mcL (140-440); RBC 3.44 M/mcL (4.50-5.90); Red Cell Distribution Width 13.3 % (11.5-14.5)
[2017-05-11 06:40] LABS: ALT/SGPT 13 U/l (0-40); Albumin 3.4 gm/dL (3.2-5.2); Albumin/Globulin Ratio 1.1 (1.0-2.3); Alkaline Phosphatase 59 U/L (39-117); Bilirubin,Direct < 0.2 mg/dL (0.0-0.3); Blood Urea Nitrogen 17 mg/dl (8-23); Gamma Glutamyl Transpeptidase 13 U/L (8-61); Magnesium 1.6 mg/dL (1.6-2.5); Uric Acid 8.1 mg/dL (2.5-8.0)
[2017-05-11 07:34] LABS: Band Neutrophils % 2 % (0-10); Eosinophils % (Manual) 4 % (0-7); Lymphocytes % 24 % (15-49); Macrocytosis 1+ (NONE SEEN); Metamyelocytes % 1 % (0-0); Monocytes % (Manual) 11 % (1-12); Myelocytes % 2 % (0-0); Platelet Estimate DECREASED (NORMAL); RBC Morphology ABNORM (NORMAL); Segmented Neutrophils % 56 % (38-78)
[2017-05-11] MEDS: OMEPRAZOLE 20 MG CAPSULE PO SCH (07:54)
[2017-05-11] MEDS: INSULIN LISPRO 1 UNIT/0.01 ML UNIT SQ SCH ×4 (07:59→20:15)
[2017-05-11] MEDS: HEPARIN 5,000 UNIT/ML VIAL SQ SCH ×2 (08:40→20:22)
[2017-05-11] MEDS: METOPROLOL TARTRATE 50 MG TABLET PO SCH ×2 (08:40→20:21)
[2017-05-11] MEDS: FLUTICASONE PROPIONATE SPRAY.NAS NS SCH (08:41)
[2017-05-11] MEDS: CYANOCOBALAMIN (VITAMIN B-12) 500 MCG TABLET PO SCH ×2 (08:41→20:20)
[2017-05-11] MEDS: glipiZIDE 5 MG TABLET PO SCH (08:41)
[2017-05-11] MEDS: MULTIVIT,THER IRON,CA,FA & MIN 1 TABLET PO SCH (08:41)
[2017-05-11] MEDS: DOCUSATE SODIUM 100 MG CAPSULE PO SCH ×3 (08:41→20:15)
[2017-05-11] MEDS: FERROUS SULFATE 325 MG TABLET PO SCH (08:41)
[2017-05-11] MEDS: ASPIRIN 81 MG TAB.CHEW CHEWED SCH (08:41)
[2017-05-11] MEDS: HYDROCHLOROTHIAZIDE 25 MG TABLET PO SCH (08:42)
[2017-05-11] MEDS: amLODIPine 10 MG TABLET PO SCH (08:42)
[2017-05-11] MEDS: LISINOPRIL 20 MG TABLET PO SCH (08:45)
[2017-05-11] MEDS: VITAMIN D3 1,000 UNIT TABLET PO SCH (08:50)
[2017-05-11] MEDS: sitaGLIPtin 100 MG TABLET PO SCH (08:50)
--- NOTE | 2017-05-11 09:56 | Internal Med Progress Note ---
Medical - PN: Subj Patient information: Note initiated : 05/11/17 at 9:53 am Service Date, if different from initiated Date: [] Patient: Luis Holland 81 y/o M admitted on 05/09/17 for Neuro/Right Hemispheric CVA with Left Hemiparesis. Chief Complaint: [] Interval history: 05/09- patient admitted with left-sided weakness/dysarthria. Beyond the window for TPA. Initial NIH score 7. Admitted to telemetry. CT angiogram neck along with head and CT brain unremarkable. Echo and MRI pending. Started on aspirin and statin. Continue stroke management per protocol along with aggressive physical therapy/SGOT eval 05/10-multifocal posterior right frontal lobe embolic infarcts on MRI. History of atrial fibrillation. Discussed anticoagulation to prevent future stroke. I do correlation can be safely started 2 weeks following acute stroke as outpatient. At this time patient is undergoing PT OT ST eval. Discharge planning will depend on physical therapy recommendations. No overnight fever chills nausea, worsening SYMPTOMS. Patient actually feels much better and able to ambulate 05/11- patient doing well. Ongoing physical therapy. No overnight events including worsening neurological CHANGES. No shortness of breath fever chills or concerns per staff. Tolerating diet and advancing to level III dysphagia nectar thick as per ST recommendations. Phonation much improved. Anticipate discharge to SNF in 24 hours. - Constitutional Vitals: Vital Signs Temp Pulse Resp BP Pulse Ox 97.4 F 85 16 129/83 98 05/11/17 07:51 05/11/17 07:51 05/11/17 07:51 05/11/17 07:51 05/11/17 07:51 Period Temp Pulse Resp BP Sys/Alexander Pulse Ox Last 24 Hr 97.4 F-98.8 F 85-97 -18 107-129/51-83 97-98 Intake and Output 05/10/17 05/11/17 05/11/17 21:59 05:59 13:59 Intake Total 360 / 360 1000 / 1000 Output Total 625 / 625 625 / 625 300 / 300 Balance -265 / -265 375 / 375 -300 / -300 Weight 199 lb 1.6 oz Intake & Output: Intake & Output 05/10/17 05/11/17 05/11/17 21:59 05:59 13:59 Intake Total 360 / 360 1000 / 1000 Output Total 625 / 625 625 / 300 / 300 Balance -265 / -265 375 / 375 -300 / -300 Weight 199 lb 1.6 oz Intake: IV 1000 / 1000 Oral 360 / 360 Output: Void Amount / / 300 / 300 Other: Meal Dinner Percent of Meal Consumed 100% Feeding Ability Assist with Tray Set Up General appearance: cooperative, no acute distress Exam: llert and oriented nonlabored breathing No anxiety Improvement OF functional left-sided weakness grade 4 strength Medical - PN: Obj Da - Labs CBC & Chem 7: 05/11/17 04:09 05/11/17 04:09 Labs: Abnormal Lab Results 05/11/17 05/11/17 05/10/17 04:09 04:09 04:08 RBC 3.44 L Hgb 12.4 L Hct 35.7 L MCV 103.7 H MCH 36.1 H Plt Count 137 L [place] % (Auto) Lymph # (Auto) Monocytes % (Manual) Metamyelocytes % 1 H Myelocytes % 2 H WBC Morphology Toxic Granulation Platelet Estimate Decreased A RBC Morphology Abnorm A Macrocytosis 1+ A Chloride Anion Gap Glucose 135 H 154 H POC Glucose Uric Acid 8.1 H 8.2 H Phosphorus 2.1 L 2.4 L Magnesium 1.4 L Globulin 3.8 H Triglycerides 166 H 217 H Urine Glucose (UA) 05/10/17 05/09/17 05/09/17 04:08 09:40 08:14 RBC 4.02 L Hgb Hct MCV 103.6 H MCH 35.3 H Plt Count [place] % (Auto) Lymph # (Auto) Monocytes % (Manual) 13 H Metamyelocytes % Myelocytes % WBC Morphology Abnorm A Toxic Granulation 1+ A Platelet Estimate RBC Morphology Abnorm A Macrocytosis 1+ A Chloride 94 L Anion Gap 18.0 H Glucose 245 H POC Glucose 247 H Uric Acid Phosphorus Magnesium Globulin 4.0 H Triglycerides Urine Glucose (UA) >=500 A 05/09/17 08:14 RBC 4.06 L Hgb Hct MCV 102.2 H MCH 35.1 H Plt Count [place] % (Auto) 12.6 H Lymph # (Auto) 1.1 L Monocytes % (Manual) Metamyelocytes % Myelocytes % WBC Morphology Toxic Granulation Platelet Estimate RBC Morphology Macrocytosis Chloride Anion Gap Glucose POC Glucose Uric Acid Phosphorus Magnesium Globulin Triglycerides Urine Glucose (UA) Meds: Medications Acetaminophen (Tylenol) 650 mg PO Q4-6HP PRN PRN Reason: PAIN/FEVER > 101 Amlodipine Besylate (Norvasc) 10 mg PO DAILY [facility] Last Admin: 05/11/17 08:42 Dose: Not Given Aspirin (Aspirin) 324 mg CHEWED DAILY [facility] Last Admin: 05/11/17 08:41 Dose: 324 mg Atorvastatin Calcium (Lipitor) 40 mg PO HS [facility] Last Admin: 05/10/17 20:33 Dose: Not Given Cyanocobalamin (Vitamin B-12) 1,000 mcg PO BID [facility] Stop: 05/14/17 09:01 Last Admin: 05/11/17 08:41 Dose: 1,000 mcg Dextrose (Dextrose 50%) 0 ml IV UD PRN PRN Reason: Hypoglycemia Diagnostic Test (Pha) (Accu-Chek) 1 each FS ACHS [facility] Last Admin: 05/11/17 07:54 Dose: 1 each Docusate Sodium (Colace) 100 mg PO BID [facility] Last Admin: 05/11/17 08:41 Dose: Not Given Ferrous Sulfate (Ferrous Sulfate) 325 mg PO [facility] Last Admin: 05/11/17 08:41 Dose: 325 mg Fluticasone Propionate (Flonase) 2 spray NS DAILY [facility] Last Admin: 05/11/17 08:41 Dose: Not Given [facility] Last Admin: 05/11/17 08:41 Dose: 5 mg Glucose (Insta-Glucose) 15 gm PO PRN PRN PRN Reason: Hypoglycemia Heparin Sodium (Porcine) (Heparin) 5,000 unit SQ Q12 [facility] Last Admin: 05/11/17 08:40 Dose: 5,000 unit Hydrochlorothiazide (Oretic) 25 mg PO DAILY [facility] Last Admin: 05/11/17 08:42 Dose: Not Given Magnesium Sulfate (Magnesium Sulfate) 2 gm in 50 mls @ 50 mls/hr IV UD PRN PRN Reason: MG = or < 1.7 Last Infusion: 05/10/17 08:05 Dose: Infused Insulin Human Lispro (Humalog) 0 unit SQ ACHS [facility] PRN Reason: Protocol Last Admin: 05/11/17 07:59 Dose: 1 unit Iron Carb/Multivit/[place]/Folic Acid (Multivitamin W/Minerals) 1 tab PO DAILY [facility] Last Admin: 05/11/17 08:41 Dose: 1 tab Lisinopril (Zestril) 40 mg PO DAILY [facility] Last Admin: 05/11/17 08:45 Dose: Not Given Magnesium Hydroxide (Milk Of Magnesia) 30 ml PO HSP PRN PRN Reason: Constipation Methocarbamol (Robaxin) 750 mg PO QIDP PRN PRN Reason: Muscle Spasm Last Admin: 05/09/17 20:00 Dose: 750 mg Metoprolol Tartrate (Lopressor) 75 mg PO BID [facility] Last Admin: 05/11/17 08:40 Dose: 75 mg Omeprazole (Prilosec) 20 mg PO QAMAC [facility] Last Admin: 05/11/17 07:54 Dose: 20 mg Ondansetron HCl (Zofran) 4 mg IV Q4-6HP PRN PRN Reason: Nausea And Vomiting Polyethylene Glycol (Miralax) 17 gm PO DAILYP PRN PRN Reason: Constipation Potassium Chloride (Klor-Con) 40 meq PO DAILYP PRN PRN Reason: K+ < 3.5 Senna/Docusate Sodium (Senna Plus Tablet) 1 tab PO HS [facility] Last Admin: 05/10/17 20:33 Dose: Not Given Sitagliptin Phosphate (Januvia) 100 mg PO DAILY [facility] Last Admin: 05/11/17 08:50 Dose: 100 mg Sodium Chloride (Saline Flush) 10 ml IV Q8 [facility] Last Admin: 05/11/17 05:45 Dose: 10 ml Trazodone HCl (Desyrel) 50 mg PO HSP PRN PRN Reason: Insomnia Last Admin: 05/09/17 19:59 Dose: 50 mg Vitamin D (Vitamin D3) 2,000 unit PO DAILY [facility] Last Admin: 05/11/17 08:50 Dose: 2,000 unit Medical - PN: A/P - Time Spent With Patient Total time spent is greater than 50% in coordination of care (as documented) at patient's floor/unit and/or counseling patient: 15 - 24 minutes (1) Cerebrovascular accident (CVA) due to embolism of right anterior cerebral artery Status: Acute Assessment and plan: * Right frontal lobe multifocal embolic CVA in the setting of A. fib. Ongoing stroke management per protocol. Recommend initiation of anticoagulation in 2 weeks for future stroke prophylaxis. Continue aggressive PT OT ST. echo normal LV function,no septal defects noted * HTN continue JULIO inhibitor/amlodipine, metoprolol, thiazide * History of coronary artery disease continue aspirin * Allergic rhinitis continue fluticasone * GERD continue PPI * Hyperlipidemia on statin Plan * transfer to medical floor * await SNF transfer * Continue aggressive PT OT STEval and treatment * discharge planning as per PT recommendations * await callback from primary care physician for discussions of timing of initiation of anticoagulation Current Visit: Yes Medical - PN: Qual - Stroke Onset of Symptoms Date: 05/09/17 Onset of Symptoms Time: 01:00 Symptom Onset Unknown: Yes - VTE Deep Vein Thrombosis/Pulmonary Embolism Present on Admission: No
[2017-05-11] MEDS: SENNOSIDES/DOCUSATE SODIUM 1 TAB TABLET PO SCH (20:15)
[2017-05-11] MEDS: ATORVASTATIN 20 MG TABLET PO SCH (20:25)
[2017-05-12] MEDS: 0.9 % SODIUM CHLORIDE 10 ML SYRINGE IV SCH (05:24)
[2017-05-12 06:10] LABS: Mean Cell Volume 104.2 fL (80.0-100.0); Mean Corpuscular HGB Conc 34.7 g/dL (31.0-36.0); Mean Corpuscular Hemoglobin 36.1 pg (26.0-34.0); Platelet Count 137 K/mcL (140-440); RBC 3.34 M/mcL (4.50-5.90); Red Cell Distribution Width 13.5 % (11.5-14.5)
[2017-05-12 06:35] LABS: ALT/SGPT 13 U/l (0-40); Albumin 3.7 gm/dL (3.2-5.2); Albumin/Globulin Ratio 1.3 (1.0-2.3); Alkaline Phosphatase 56 U/L (39-117); Bilirubin,Direct < 0.2 mg/dL (0.0-0.3); Blood Urea Nitrogen 21 mg/dl (8-23); Gamma Glutamyl Transpeptidase 13 U/L (8-61); Magnesium 1.6 mg/dL (1.6-2.5); Uric Acid 8.3 mg/dL (2.5-8.0)
--- NOTE | 2017-05-12 07:04 | Discharge Summary ---
Medical - DS: Prov Patient information: Note initiated : 05/12/17 at 7:01 am Service Date, if different from initiated Date: [] Patient: Luis Holland 81 y/o M admitted on 05/09/17 for Neuro/Right Hemispheric CVA with Left Hemiparesis. Chief Complaint: [] Date of admission: 05/09/17 14:45 Discharge date: 05/12/17 Primary care physician: Doug Lund Consults: 05/09/17 12:17 Consult to Physician [CONS] Stat Comment: Consulting Provider: Wilmar Cash Reason For Exam: Physician to Consult Medical - DS: Meds - Discharge Medications Prescriptions: amLODIPine BESYLATE [Amlodipine Besylate] 5 mg PO DAILY #30 tab Active and Home Medications: Home Medications Aspirin [[place] Aspirin] 81 mg PO DAILY 01/31/17 [History Confirmed Last Taken Unknown] Cholecalciferol (Vitamin D3) [Vitamin D3] 2,000 unit PO DAILY 01/31/17 [History Confirmed 05/09/17 Last Taken Unknown] Cyanocobalamin/Folic Acid [Vitamin F90-Bjujg Acid Tablet] 1 each PO DAILY [History Confirmed 05/09/17 Last Taken Unknown] Ferrous Sulfate 65 mg PO DAILY 01/31/17 [History Confirmed 05/09/17 Last Taken Unknown] Methocarbamol [Robaxin-750] 750 mg PO QIDP PRN #60 tab 01/31/17 [Rx Confirmed Last Taken Unknown] Metoprolol Tartrate [Lopressor] 75 mg PO BID 01/31/17 [History Confirmed Last Taken Unknown] Omeprazole [Prilosec] 20 mg PO DAILY 01/31/17 [History Confirmed 05/09/17 Last Taken Unknown] Pravastatin [Pravachol] 20 mg PO HS 01/31/17 [History Confirmed 05/09/17 Last Taken Unknown] glipiZIDE [Glucotrol] 5 mg PO DAILY 01/31/17 [History Confirmed 05/09/17 Last Taken Unknown] Fluticasone Propionate [Flonase] 2 spray NS DAILY 05/09/17 [History Confirmed Last Taken Unknown] Lisinopril [Zestril] 40 mg PO DAILY 05/09/17 [History Confirmed 05/09/17 Last Taken Unknown] Multivitamin [One Daily] 1 each PO DAILY 05/09/17 [History Confirmed 05/09/17 Last Taken Unknown] amLODIPine BESYLATE [Amlodipine Besylate] 5 mg PO DAILY #30 tab 05/12/17 [Rx Last Taken Unknown] Medical - DS: Hosp Hospital course: Mr. Holland is a 81 year old M Discharge diagnosis: . 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 linically improved neurological deficits that aggressive physical therapy. Transferring to SNF for continued for stroke rehabilitation. Recommend initiation of anticoagulation in 2 weeks for future stroke prophylaxis. * HTN continue JULIO inhibitor/half dose amlodipine, metoprolol, discontinue thiazide * History of coronary artery disease continue aspirin/metoprolol/lisinopril * Allergic rhinitis continue fluticasone * GERD continue PPI * Hyperlipidemia on statin BRIEF HOSPITAL COURSE 05/09- patient admitted with left-sided weakness/dysarthria. Beyond the window for TPA. Initial NIH score 7. Admitted to telemetry. CT angiogram neck along with head and CT brain unremarkable. Echo and MRI pending. Started on aspirin and statin. Continue stroke management per protocol along with aggressive physical therapy/SGOT eval 05/10-multifocal posterior right frontal lobe embolic infarcts on MRI. History of atrial fibrillation. Discussed anticoagulation to prevent future stroke. I do correlation can be safely started 2 weeks following acute stroke as outpatient. At this time patient is undergoing PT OT ST eval. Discharge planning will depend on physical therapy recommendations. No overnight fever chills nausea, worsening SYMPTOMS. Patient actually feels much better and able to ambulate 05/11- patient doing well. Ongoing physical therapy. No overnight events including worsening neurological CHANGES. No shortness of breath fever chills or concerns per staff. Tolerating diet and advancing to level III dysphagia nectar thick as per ST recommendations. Phonation much improved. Anticipate discharge to SNF in 24 hours. 05/12 patient transferring to SNF. Doing well. Much improved neurological deficits. Continue physical therapy. Recommend primary care physician to initiate anticoagulation in 10-14 days for future prevention of strokes.detailed discharge instructions as below - Time Spent with Patient Total time spent providing and/or coordinating discharge services: Greater than 30 minutes Medical - DS: Exam - Constitutional Vitals: Vital Signs Temp Pulse Resp BP Pulse Ox 05/12/17 04:00 97.2 F 86 18 122/88 98 05/12/17 00:00 76 18 130/85 98 05/11/17 20:00 98.1 F 86 18 118/74 97 05/11/17 16:00 98.9 F 82 20 119/77 97 05/11/17 12:00 98.6 F 84 18 103/64 99 05/11/17 08:00 85 15 99 05/11/17 07:51 97.4 F 85 16 129/83 98 Intake and Output 05/11/17 05/12/17 05/12/17 21:59 05:59 13:59 Intake Total 240 / 240 Output Total 825 / 825 Balance 240 / 240 -825 / -825 Intake: Oral 240 / 240 Output: Void Amount 825 / 825 Other: # Voids 1 # Bowel Movements 1 Weight 201 lb 11.2 oz Medical - DS: Data Labs on day of discharge: Labs from last 24 hours 05/12/17 05/12/17 05/11/17 04:00 04:00 04:09 WBC 5.3 RBC 3.34 L Hgb 12.1 L Hct 34.7 L MCV 104.2 H MCH 36.1 H MCHC 34.7 RDW 13.5 Plt Count 137 L MPV 9.7 Total Counted Pending 100 Seg Neutrophils % 56 Band Neutrophils % Not Reportable 2 Lymphocytes % 24 Monocytes % (Manual) 11 Eosinophils % (Manual) 4 Metamyelocytes % 1 H Myelocytes % 2 H Platelet Estimate Pending Decreased A RBC Morphology Pending Abnorm A Macrocytosis 1+ A Sodium 141 Potassium 3.5 Chloride 103 Carbon Dioxide 25 Anion Gap 13.0 BUN 21 Creatinine 1.1 GFR Calculation 63 Glucose 116 H Uric Acid 8.3 H Calcium 9.2 Phosphorus 2.0 L Magnesium 1.6 Total Bilirubin 0.4 Direct Bilirubin < 0.2 GGT 13 AST 19 ALT 13 Alkaline Phosphatase 56 Lactate Dehydrogenase 139 Total Protein 6.5 Albumin 3.7 Globulin 2.8 Albumin/Globulin Ratio 1.3 Triglycerides 171 H Medical - DS: A/P - Patient/Caregiver Discharge Instructions Activity: as per physical therapy, resume usual activities as tolerated Diet: Regular Diet Additional Instructions: Follow-up PCP in 5 days recommend initiation of Coumadin/anticoagulation for future CVA prophylaxis in 10-14 days Coumadin as per orthopedics for post hip DVT prophylaxis I recommend rimary care physician to check CBC BMP UA as a posthospital follow- up Continue aggressive bowel regimen to prevent constipation Continue fall precautions Continue aggressive PT OT evaluation and treatment at SNF. ST eval and treatment if indicated All meals on chair sitting upright at 90 degrees to prevent aspiration Return to ER if worsening neurological symptoms Continue diet and activity as advised Discussed importance of medication adherence Please review medication list with patient prior to discharge Please schedule follow-up with PCP/Providers prior to discharge and provide printouts Portions of this chart may have been created with [employer] voice recognition software. Occasional wrong-word or ?sound-like? substitutions may have occurred due to the inherent limitations of voice recognition software. Please read the chart carefully and recognize, using context, where the substitutions have occurred. CC- PCP Prescriptions: amLODIPine BESYLATE [Amlodipine Besylate] 5 mg PO DAILY #30 tab - Problem Maintenance (1) Cerebrovascular accident (CVA) due to embolism of right anterior cerebral artery Status: Acute - Follow up Plan Follow up with: Doug Lund MD [Primary Care Provider] - Disposition: [facility] Prognosis: Fair Rehab Potential: Fair I certify that the patient requires SNF services: Yes Overall status at discharge: patient is progressing back to baseline Medical - DS: Qual - VTE Deep Vein Thrombosis/Pulmonary Embolism Present on Admission: No
[2017-05-12 07:16] LABS: Anisocytosis 1+ (NONE SEEN); Band Neutrophils % 1 % (0-10); Eosinophils % (Manual) 7 % (0-7); Lymphocytes % 32 % (15-49); Monocytes % (Manual) 7 % (1-12); Platelet Estimate NORMAL (NORMAL); RBC Morphology ABNORM (NORMAL); Segmented Neutrophils % 53 % (38-78)
[2017-05-12] MEDS: OMEPRAZOLE 20 MG CAPSULE PO SCH (09:03)
[2017-05-12] MEDS: FERROUS SULFATE 325 MG TABLET PO SCH (09:03)
[2017-05-12] MEDS: METOPROLOL TARTRATE 50 MG TABLET PO SCH (09:03)
[2017-05-12] MEDS: MULTIVIT,THER IRON,CA,FA & MIN 1 TABLET PO SCH (09:03)
[2017-05-12] MEDS: ASPIRIN 81 MG TAB.CHEW CHEWED SCH (09:03)
[2017-05-12] MEDS: glipiZIDE 5 MG TABLET PO SCH (09:03)
[2017-05-12] MEDS: CYANOCOBALAMIN (VITAMIN B-12) 500 MCG TABLET PO SCH (09:03)
[2017-05-12] MEDS: FLUTICASONE PROPIONATE SPRAY.NAS NS SCH (09:04)
[2017-05-12] MEDS: DOCUSATE SODIUM 100 MG CAPSULE PO SCH (09:04)
[2017-05-12] MEDS: HEPARIN 5,000 UNIT/ML VIAL SQ SCH (09:05)
[2017-05-12] MEDS: amLODIPine 10 MG TABLET PO SCH (09:10)
[2017-05-12] MEDS: HYDROCHLOROTHIAZIDE 25 MG TABLET PO SCH (09:10)
[2017-05-12] MEDS: LISINOPRIL 20 MG TABLET PO SCH (09:10)
[2017-05-12] MEDS: INSULIN LISPRO 1 UNIT/0.01 ML UNIT SQ SCH (09:13)
[2017-05-12] MEDS: VITAMIN D3 1,000 UNIT TABLET PO SCH (09:14)
[2017-05-12] MEDS: sitaGLIPtin 100 MG TABLET PO SCH (09:14)
[2017-05-12] MEDS: MAGNESIUM SULFATE 2 GM/50 ML BAG IV PRN (09:22)
== END 2017-05-12 11:55 | DRG 65 ==
LOC: ED 08:10 → ICU 14:45
PROVIDERS: ADMIT Internal Medicine; ATTEND Internal Medicine